=== PATIENT | male | born 1980 | race Caucasian/White ===

== ENCOUNTER 2017-01-08 14:21 | Emergency (ER) | payer OTHER ==
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
== END 2017-01-08 16:17 | disposition home or self-care (01) ==
LOC: ERS 14:21
DX: S60.222A Contusion of left hand, initial encounter (principal); S20.212A Contusion of left front wall of thorax, initial encounter; S60.212A Contusion of left wrist, initial encounter; F41.9 Anxiety disorder, unspecified; V43.52XA Car driver injured in collision with other type car in traffic accident, initial encounter
CPT/HCPCS: 71020; 93005

== ENCOUNTER 2017-01-22 07:52 | Outpatient (CLI) | payer OTHER ==
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
== END 2017-01-22 07:53 | disposition home or self-care (01) ==
LOC: SCSMRI 07:52
PROVIDERS: ATTEND Family Medicine
DX: S06.0X9A Concussion with loss of consciousness of unspecified duration, initial encounter (principal); R51 Headache; J32.0 Chronic maxillary sinusitis; V89.2XXA Person injured in unspecified motor-vehicle accident, traffic, initial encounter
CPT/HCPCS: 70551